=== PATIENT | male | born 1990 | race Caucasian/White ===

== ENCOUNTER 2023-04-20 20:38 | Inpatient (IN) | payer MEDICARE, OTHER ==
[~2023-04-20] VITALS: Ht 152.4 cm; Wt 47.8 kg
[2023-04-20 20:53] LABS: Hematocrit 47.1 % (37.0-53.0); Hemoglobin 14.4 g/dL (13.5-17.5); Mean Corpuscular HGB 28.5 pg (26.0-34.0); Mean Corpuscular HGB Conc 30.6 g/dL (31.5-36.5); Mean Corpuscular Volume 93 fL (80-100); Mean Platelet Volume 10.5 fL (9.1-12.4); NRBC ABSOLUTE 0.02 K/mm3 (0.00-0.02); NRBC Auto 0.1 /100 WBC (0.0-0.2); Platelet Count 409 K/mm3 (150-400); RDW Coefficient Variation 13.8 % (11.7-14.2); RDW Standard Deviation 46.9 fL (35.1-46.3); Red Blood Cell Count 5.05 M/mm3 (4.30-5.90); White Blood Cell Count 16.94 K/mm3 (4.00-11.30)
[2023-04-20 21:05] LABS: Calcium, Ionized (POC) 1.19 mmol/L (1.10-1.46); Chloride (POC) 104 mmol/L (98-108); Creatinine (POC) 1.4 mg/dL (0.8-1.3); Glucose (ISTAT POC) 280 mg/dL (70-99); Hemoglobin (POC) 15.3 g/dL (13.5-17.5); Potassium (POC) 3.7 mmol/L (3.5-5.5); Sodium (POC) 141 mmol/L (135-148); Total CO2 (POC) 21 mmol/L (21-32)
[2023-04-20 21:14] LABS: Albumin, Blood 2.8 g/dL (3.4-5.0); Albumin/Globulin Ratio 0.8 (0.8-1.8); Bilirubin, Total 0.2 mg/dL (0.1-1.0); Bun/Creatinine Ratio 12.1 (12.0-20.0); Calcium, Blood 9.1 mg/dL (8.5-10.1); Creatinine, Blood 1.4 mg/dL (0.60-1.20); Globulin, Blood 3.4 g/dL (2.2-4.0); Potassium, Blood 3.9 mmol/L (3.5-5.5); Total Protein, Blood 6.2 g/dL (6.4-8.2)
[2023-04-20 21:58] LABS: BAND PERCENT MAN 2 % (0-8); BASOPHILS ABSOLUTE MAN 0.16 K/mm3 (0.00-0.23); BASOPHILS PERCENT MAN 1 % (0-2); EOSINOPHILS ABSOLUTE MAN 0.16 K/mm3 (0.00-0.68); EOSINOPHILS PERCENT MAN 1 % (0-6); LYMPHOCYTES PERCENT MAN 52 % (21-46); MONOCYTES ABSOLUTE MAN 0.67 K/mm3 (0.16-1.47); MONOCYTES PERCENT MAN 4 % (4-13); MYELOCYTE ABSOLUTE MAN 0.16 K/mm3 (0.00-0.00); MYELOCYTE PERCENT MAN 1 % (0-0); NEUTROPHILS ABSOLUTE MAN 6.94 K/mm3 (1.96-9.15); SEG NEUTROPHILS PERCENT MAN 39 % (41-73); TOTAL CELLS COUNTED 100
[2023-04-20 22:05] LABS: Base Excess Venous -3.3 mmol/L; Bicarbonate Venous 20.7 mmol/L (24.0-30.0); PCO2 Venous 59.8 mmHg (38-42); pH Blood Venous 7.22 (7.34-7.37)
[2023-04-20 22:32] LABS: Source, Urine Foley catheter
[2023-04-20 22:36] LABS: Bilirubin, Urine Neg (Neg); Blood, Urine 2+ (Neg); Glucose Qualitative, Urine 3+ (Neg); Ketones, Urine Neg (Neg); Leukocyte Esterase, Urine 1+ (Neg); Nitrite, Urine Neg (Neg); Protein, Urine 2+ (Neg); Urobilinogen, Urine NORM (Normal)
[2023-04-20 22:42] LABS: Appearance, Urine Hazy (Clear); Color, Urine Yellow (P-Yellow)
[2023-04-20 22:43] LABS: Amorphous Light (0-Heavy); Bacteria Many /hpf; Red Blood Cells, Urine 0-2 /hpf (0-2); Squamous Epithelial Cells Rare /hpf (Few)
[2023-04-20 22:46] LABS: U Amphetamine Screen DETECTED; U Barbituate Screen Not Detected; U Benzodiazapine Screen Not Detected; U Buprenorphine Screen Not Detected; U Cannabinoids Screen Not Detected; U Cocaine Screen Not Detected; U Methadone Screen Not Detected; U Methamphetamine Screen DETECTED; U Opiates Screen Not Detected; U Oxycodone Screen Not Detected; U Phencyclidine Screen Not Detected; U Propoxyphene Screen Not Detected
[2023-04-21] VITALS (10 sets, daily range): BP systolic 88–150; BP diastolic 64–125
[2023-04-21 00:04] LABS: Base Excess Venous -0.6 mmol/L; Bicarbonate Venous 22.9 mmol/L (24.0-30.0); PCO2 Venous 50.5 mmHg (38-42); pH Blood Venous 7.31 (7.34-7.37)
--- NOTE | 2023-04-21 04:00 | NUR ---
ER ADMIT TO ICU 11: PT ARRIVED TO THE UNIT AT 0055; PT ADMITTED S/P CARDIAC ARREST SECONDARY TO A POSSIBLE OVERDOSE. PT ARRIVED ON VENT WITH SETTINGS AC/VC 18/420/5/80%; PT BREATHING OVER VENT, TACHYPNEA WITH RR 20-30'S, SPO2 98<. PT ST ON MONITOR WITH HR 130-140'S, SBP 110'S. PROPFOL GTT @ 25 MCG/KG/MIN UPON ARRIVAL TO UNIT. AFTER PT ARRIVAL AND TRANSFER TO NEW BED, PT DISPLAYING JERKING MOVEMENTS SIMILAR TO A TONIC CLONIC SEIZURE; DR GONZALEZ NOTIFIED AND VERBAL ORDERS FOR ATIVAN (SEE EMAR). PT MEDICATED WITH ATIVAN AND JERKING MOVEMENTS CEASED AND PT MORE COMPLIANT WITH VENT AND RELAXED IN BED. PROPOFOL GTT TITRATED UP TO 45 MCG/KG/MIN AT THIS TIME. 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 PT LUNG SOUNDS ARE CLEAR WITH DIM BASES. ABD FLAT, SOFT, AND HYPOACTIVE BOWEL SOUNDS PRESENT. COUDE CATHETER IN PLACE WITH BLOOD-TINGED URINE OUTPUT NOTED. RECTAL TEMP PROBE PLACED WITH TMAX 101.8; HYPOTHERMIA PROTOCOL IN PLACE WITH TARGET TEMP OF 96.8. COOLING BLANKET AND ICEPACKS PLACED ON PT. CURRENTLY TEMP IS DOWN TO 99.8. OVERALL SKIN INTACT, WARM AND DIAPHORETIC. COBRA TRANSFER INITIATED AND PT IS SET TO GO BY GROUND TRANSPORT TO [facility] AND WILL BE LEAVING AROUND 0500 FROM [facility]. PT'S MOTHER, JOAQUINA, CALLED AND UPDATED ON DEPARTURE TIME AND GIVEN CONTACT INFO FOR UNIT NUMBER AND BED ASSIGNMENT FOR [facility]. CURRENTLY VENT SETTINGS AC/VC 16/400/5/50%, PROPOFOL GTT @ 30 MCG/KG/MIN AND NS @ 100 MLS/HR. VSS AT THIS TIME; PT REMAINS ST ON MONITOR WITH HR 120'S, SBP 90'S. FAMILY CONTACT INFO: JOSE (MOTHER) [phone], MAGNUS (SISTER) [phone].
--- NOTE | 2023-04-21 05:20 | NUR ---
PT TRANSFER TO [facility]: PT BEING TRANSPORTED VIA GROUND BY [facility] AND [facility]. PT LEFT UNIT AT 0508 WITH GROUND TRANSPORT. REPORT GIVEN BY THIS RN TO NOEMI MONSON AT THE NEURO ICU AT [facility] AT 0515. PT'S MOTHER, JOAQUINA, CALLED AND NOTIFIED OF TRANSPORT DETAILS AND CONTACT INFORMATION AND UNIT ASSIGNMENT PROVIDED. FAMILY TOOK ALL OF PT'S BELONGINGS HOME.
== END 2023-04-21 05:08 | disposition short-term general hospital (02) | DRG 917 ==
LOC: ER 20:38 → ICUE 04-21 00:19
PROVIDERS: Emergency Medicine; ADMIT Internal Medicine
PROC: 5A1935Z Respiratory Ventilation, Less than 24 Consecutive Hours (ICD-10-PCS; principal; 2023-04-20)
PROC: 0BH17EZ Insertion of Endotracheal Airway into Trachea, Via Natural or Artificial Opening (ICD-10-PCS; 2023-04-20)
DX: T43.651A Poisoning by methamphetamines accidental (unintentional), initial encounter (principal); G93.5 Compression of brain; J69.0 Pneumonitis due to inhalation of food and vomit; J96.00 Acute respiratory failure, unspecified whether with hypoxia or hypercapnia; I46.9 Cardiac arrest, cause unspecified; S27.329A Contusion of lung, unspecified, initial encounter; X58.XXXA Exposure to other specified factors, initial encounter; H54.8 Legal blindness, as defined in USA; F15.10 Other stimulant abuse, uncomplicated; Z98.2 Presence of cerebrospinal fluid drainage device
CPT/HCPCS: 31500; 51702; 70450; 71045; 71260; 72125; 74177; 80047; 80053; 81001; 82803; 83735; 83880; 84484; 85014; 85025; 87077; 87086; 87186; 93005; 93010; 94002; 94003; 96374; 96375; 99291-25; J1953; J2060; J2704; J3010; J3370; J7030; J7050; J7120; L0160; Q9967